=== PATIENT | male | born 1985 | race Caucasian/White ===

== ENCOUNTER 2021-10-17 02:26 | Outpatient (CLI) | payer BC, SELFPAY | END 2021-10-17 02:27 | disposition home or self-care (01) | PROVIDERS: PCP Nurse Practitioner; Visit Provider Nurse Practitioner ==

== ENCOUNTER 2021-10-18 01:54 | Outpatient (CLI) | payer BC, SELFPAY ==
[2021-10-18 14:40] LABS: Hemoglobin A1C 5.8 % (<5.7)
[2021-10-18 15:03] LABS: Calculated LDL 115 mg/dL (<100); Cholesterol 189 mg/dL (<200); HDL Cholesterol 35 mg/dL (40-60); Triglyceride 198 mg/dL (<150)
== END 2021-10-18 01:55 | disposition home or self-care (01) ==
LOC: LBO 01:54
PROVIDERS: PCP Nurse Practitioner; Visit Provider Nurse Practitioner
DX: Z13.1 Encounter for screening for diabetes mellitus (principal); Z13.6 Encounter for screening for cardiovascular disorders
CPT/HCPCS: 36415; 80061; 83036

== ENCOUNTER 2023-01-16 02:08 | Outpatient (CLI) | payer BC, SELFPAY ==
[2023-01-16 11:14] LABS: HCT 43.3 % (40.0-50.0); HGB 14.8 g/dL (13.5-17.5); MCH 28.5 pg (27.0-33.0); MCHC 34.2 % (32.0-36.0); MCV 83 fL (80-95); MPV 9.5 fL (8.0-11.0); Platelet Count 295 10^3/uL (130-400); RBC 5.19 10^6/uL (4.36-5.78); RDW-SD 36.8 fL; WBC 7.15 10^3/uL (4.4-10.8)
[2023-01-16 11:24] LABS: Anion Gap 7.1 mmol/L (3-11); BUN 14 mg/dL (7-18); CO2 27.9 mmol/L (21.0-32.0); CREATININE 1.1 mg/dL (0.70-1.30); Calcium 9.2 mg/dL (8.5-10.1); Chloride 103 mmol/L (98-107); Estimated GFR 89.78 (mL/min/1.73m2); Glucose 102 mg/dL (74-106); Potassium 4.2 mmol/L (3.5-5.1); Sodium 138 mmol/L (136-145)
[2023-01-16 11:29] LABS: Hemoglobin A1C 5.7 % (<5.7)
== END 2023-01-16 02:09 | disposition home or self-care (01) ==
LOC: LBO 02:09
PROVIDERS: PCP Nurse Practitioner Family; Visit Provider Nurse Practitioner Family
DX: Z00.00 Encounter for general adult medical examination without abnormal findings (principal)
CPT/HCPCS: 36415; 80048; 85027; 83036

== ENCOUNTER 2023-08-18 16:00 | Outpatient (CLI) | payer OTHER, SELFPAY ==
--- NOTE | 2023-08-18 11:15 | DI.RAD_ITS ---
Exam(s) XR ELBOW RT COMPLETE EXAM: XR ELBOW RT COMPLETE CLINICAL HISTORY: elbow pain. TECHNIQUE: 2D digital imaging was performed. Three views. COMPARISON: No exams were available for comparison FINDINGS: BONES: No acute fracture is present. No bony destructive lesion is seen. JOINTS: The elbow is normally aligned. No joint effusion is seen. SOFT TISSUE: Normal. IMPRESSION: Unremarkable radiographs of the right elbow. DATA REPOSITORY: RADIATION DOSE DELIVERED:
== END 2023-08-18 16:01 | disposition home or self-care (01) ==
LOC: DIORS 16:00
PROVIDERS: PCP Nurse Practitioner Family; Visit Provider Physician Assistant
DX: M77.11 Lateral epicondylitis, right elbow (principal)
CPT/HCPCS: 73080

== ENCOUNTER 2024-03-10 02:58 | Outpatient (CLI) | payer BC, SELFPAY ==
[2024-03-10 09:05] LABS: Hemoglobin A1C 5.6 % (<5.7)
[2024-03-10 09:07] LABS: Anion Gap 7.6 mmol/L (3-11); BUN 16 mg/dL (7-18); CO2 27.4 mmol/L (21.0-32.0); Calculated LDL 108 mg/dL (<100); Chloride 109 mmol/L (98-107); Cholesterol 176 mg/dL (<200); Estimated GFR 99.41 (mL/min/1.73m2); Glucose 108 mg/dL (74-106); HDL Cholesterol 45 mg/dL (40-60); Potassium 4.4 mmol/L (3.5-5.1); Sodium 144 mmol/L (136-145); Triglyceride 115 mg/dL (<150)
== END 2024-03-10 02:59 | disposition home or self-care (01) ==
PROVIDERS: PCP Nurse Practitioner Family; Visit Provider Nurse Practitioner Family
DX: Z00.00 Encounter for general adult medical examination without abnormal findings (principal); F40.10 Social phobia, unspecified; M25.521 Pain in right elbow
CPT/HCPCS: 36415; 80048; 80061; 83036; 84443